=== PATIENT | female | born 1995 | race Caucasian/White ===

== ENCOUNTER 2017-03-31 21:41 | Emergency (ER) | payer OTHER ==
[2017-03-31 21:45] VITALS: BP 141/87; TEMP 36.6; Ht 170.2 cm
[2017-03-31] MEDS ORDERED: OXYCODONE/ACETAMINOPHEN 5-325 TAB PO STA (21:56)
[2017-03-31] MEDS ORDERED: IBUPROFEN 200 MG TAB PO STA (21:56)
[2017-03-31] MEDS ORDERED: METF500T5 PO (22:03)
[2017-03-31] MEDS ORDERED: CITA20TA9 PO (22:03)
--- NOTE | 2017-03-31 22:35 | DIAGNOSTIC IMAGING REPORT ---
RIGHT ANKLE 3 VIEWS HISTORY: R ankle pain lateral aspect COMPARISON: None. FINDINGS: No acute fracture or dislocation right ankle. Diffuse soft tissue swelling. Tiny ossific density adjacent to the tip of the lateral malleolus consistent with an old injury. 3 mm subchondral lucency at the lateral talar dome. This is consistent with an osteochondral lesion. No radiopaque foreign bodies. IMPRESSION: 1. No acute fracture or dislocation. 2. A 3 mm subchondral lucency at the lateral talar dome consistent with an osteochondral lesion. 3. Old tiny avulsion injury at the lateral malleolus. Electronically signed by: Miguel Angel Godinez M.D. 03/31/2017 10:34 PM Dictated Date/Time: 03/31/2017 10:32 PM
--- NOTE | 2017-03-31 22:59 | EMERGENCY ROOM VISIT NOTE ---
ED Visit Note First contact with patient: 21:52 CHIEF COMPLAINT: Ankle pain HISTORY OF PRESENT ILLNESS: This 22-year-old female patient presents to the emergency department immediately after sustaining an injury to the right ankle and foot with a twisting, inversion motion when she accidentally fell off of a high curb. The patient complains of pain along the outside of the ankle. The patient denies pain of the foot. The patient rates the pain as throbbing and 10 /10. The patient is barely able to bear weight on the foot. Constant pain, worse with movement, weight bearing, and the dependent position. No knee pain, the patient is able to move their toes. No numbness or weakness of the foot, no laceration. The patient has not had a previous fracture to this ankle. The patient has taken nothing for the pain. The patient denies any other injury. REVIEW OF SYSTEMS: A 6 system review of systems was completed with positives and pertinent negatives listed in the HPI. ALLERGIES: No known drug allergies MEDICATIONS: Reviewed PMH: Diabetes type 2 SOCIAL HISTORY: Denies tobacco or EtOH products PHYSICAL EXAM: Vital Signs: Reviewed Nurse's notes, vital signs stable. GENERAL : 22-year-old obese female, no acute distress, but appears in pain, well- developed, well-nourished. MENTAL STATUS: Alert, oriented to person place and time, and cooperative. MUSCULOSKELETAL: The right ankle is swollen and tender over the lateral malleolus, but the skin is intact and there is no ligamentous instability. There is no fifth metatarsal tenderness. There is no tenderness over the rest of the foot. There is no calf or tibia/fibular tenderness. There is no visual deformity. The foot and toes are warm and well-perfused. Dorsalis pedis pulse 2+. Sensation to pain and light touch is intact. Capillary refill less than 2 seconds. EMERGENCY DEPARTMENT COURSE: I examined the patient. She was given Percocet and ibuprofen for pain. X-rays of the right ankle were reviewed by myself and read by radiology IMPRESSION: 1. No acute fracture or dislocation. 2. A 3 mm subchondral lucency at the lateral talar dome consistent with an osteochondral lesion. 3. Old tiny avulsion injury at the lateral malleolus. Electronically signed by: Miguel Angel Godinez M.D. 03/31/2017 10:34 PM Dictated Date/Time: 03/31/2017 10:32 PM . The patient was put in a walking boot Neurovascular status was rechecked and intact. The patient was instructed on the use of crutches. The patient was discharged home in good condition. DIAGNOSIS: Right ankle sprain, questionable chronic lucency at the talus DISCHARGE INSTRUCTIONS: Keep the walking boot in place and use crutches for minimal weightbearing on the right foot. Elevate the foot above your heart. Apply ice for 20 minute intervals tonight. Ibuprofen 600 mg every 6 hours Percocet 1-2 tabs every 4 hours for severe pain. Do not drink alcohol or drive while taking this medication. This may be taken with ibuprofen, but avoid Tylenol. Called with orthopedic doctor in the morning for a follow-up appointment Please do not hesitate to return to the emergency department with any new, worsening or concerning symptoms This chart was completed in part utilizing [employer] Speech Voice Recognition software. Attempts were made to minimize the grammatical errors, random word insertions, pronoun errors and incomplete sentences. Any formal questions or concerns about the content, text or information contained within the body of this dictation should be directly addressed to the provider for clarification.
[2017-03-31] MEDS ORDERED: PERCOCET HOME PACK PO ONE (23:00)
[2017-03-31 23:18] VITALS: PULSE 78; O2SAT 99
== END 2017-03-31 23:15 | disposition home or self-care (01) ==
LOC: C.EDB 21:43 → C.EDD 23:15
DX: S93.401A Sprain of unspecified ligament of right ankle, initial encounter (principal); E11.9 Type 2 diabetes mellitus without complications; E66.9 Obesity, unspecified; X50.1XXA Overexertion from prolonged static or awkward postures, initial encounter